=== PATIENT | male | born 1975 | race Hispanic/Latino ===

== ENCOUNTER 2025-06-14 14:20 | Emergency (ER) | payer BC ==
[~2025-06-14] VITALS: Ht 160 cm; Wt 81.6 kg
[2025-06-14 15:26] LABS: IMMATURE GRANULOCYTE ABSOLUTE 0.34 K/uL (0-1); NUCLEATED RED BLOOD CELLS 0.0 % (0.0-0.19); PLATELET COUNT (AUTO) 225 K/uL (130-400); RED BLOOD CELL COUNT(AUTO) 5.35 MIL/uL (4.50-6.20); RED CELL DISTRIBUTION WIDTH 13.1 % (11.0-15.5); WHITE BLOOD COUNT (AUTO) 16.0 K/uL (4.8-10.8)
[2025-06-14 15:38] LABS: CREATININE 0.8 mg/dL (0.5-1.3); GLOMERULAR FILTR. RATE CALC 109.0 mL/min (>90); GLUCOSE,RANDOM 104.0 mg/dL (70-105); SODIUM SERUM 137.0 mmol/L (136-145); UREA NITROGEN, BLOOD 10.0 mg/dL (7-18)
[2025-06-14] MEDS ORDERED: IOHEXOL-350 50ML VIAL IV ONE (15:44)
[2025-06-14] MEDS: 0.9%NACL 1000ML 1,000 ML IV STA (15:49)
--- NOTE | 2025-06-14 16:34 | ERN ---
ED Note History of Present Illness Stated Complaint: INFLAMED TONSILS Chief Complaint: Sore Throat Time Seen by MD: 14:24 Time Seen by Midlevel: 14:26 Dictation: 50-year-old male with no medical history coming in with complaints of throat pain difficulty swallowing. Patient states it has been going on for two days. Patient states he has not episode of the cysts in the past. No drooling, no tripoding, no tachypnea or hypoxia noted initial assessment. Allergies: Coded Allergies: No Known Allergies (Unverified Allergy, Unknown, 06/14/25) Home Meds Active Scripts Amoxicillin/Potassium Clav (Amox Tr-K Clv 875-125 mg Tab) 875 Mg-125 Mg Tablet, 1 EACH PO BID for 10 Days, #10 TAB 0 Refills Prov:JAKOB BENITEZ CNP 06/14/25 Past Medical History Past Medical History: HIV Surgical History: None Review of System Dictation Constitutional: Negative for fever,chills, and weight loss Eyes: Negative for injury, pain,redness, and discharge ENT: throat pain Cardiovascular: Negative for chest pain, palpitations, and edema Respiratory: Negative for shortness of breath, cough, and wheezing, Abdomen/GI: Negative for abdominal pain, nausea, vomiting, diarrhea, and constipation Back: Negative for injury and pain : Negative for injury, bleeding and discharge MS/Extremity: Negative for injury and deformity Skin: Negative for rash, and discoloration Neuro: Negative for headache, weakness, numbness, tingling, and seizure Psych: Negative for suicide ideation, homicidal ideation, and hallucinations Review of Systems: was completed Initial Vital Sign VS Vital Signs Date Time Temp Pulse Resp B/P (MAP) Pulse Ox O2 Delivery O2 Flow Rate FiO2 06/14/25 14:21 98.2 101 18 144/84 98 Room Air 0 Physical Exam Dictation General: awake, alert, NAD Head/Face: Normocephalic, atraumatic Eyes: PERRL, EOMI, vision at baseline ENT: erythema noted, swollen tonsils, is midline however there is right effacement noted Neck: Trachea midline, supple, no nuchal rigidity Cardiovascular: RRR, normal S1/S2, No MRGs, no JVD Respiratory: CTAB, no respiratory distress, No rales or wheezes Abdomen: Soft, non-tender, non-distended, normal bowel sounds, no guarding or rebound. Skin: Warm, dry, normal turgor, no rash MS/Extremity: Pulses equal, no cyanosis, neurovascular intact, FROM Neuro: COAx4, GCS 15, strength 5/5, CN 2-12 intact, normal cerebellar exam, normal gait, Psych: Normal behavior, mood, and affect normal Results (Laboratory/Radiology) Laboratory/Radiology Laboratory Tests Test 06/14/25 15:12 06/14/25 16:18 White Blood Count 16.0 K/uL (4.8-10.8) H Red Blood Count 5.35 MIL/uL (4.50-6.20) Hemoglobin 16.8 g/dL (14.0-18.0) Hematocrit 48.8 % (42-54) Mean Corpuscular Volume 91.2 fL (79-99) Mean Corpuscular Hemoglobin 31.4 pg (27.0-33.0) Mean Corpuscular Hemoglobin Concent 34.4 g/dL (32.0-36.0) Red Cell Distribution Width 13.1 % (11.0-15.5) Platelet Count 225 K/uL (130-400) Mean Platelet Volume 9.5 fL (7.5-10.5) Immature Granulocyte % (Auto) 2.1 % (0-1) H Neutrophils (%) (Auto) 74.0 % (40.0-77.0) Lymphocytes (%) (Auto) 10.2 % (21.0-51.0) L Monocytes (%) (Auto) 10.9 % (3.0-13.0) Eosinophils (%) (Auto) 2.3 % (0.0-8.0) Basophils (%) (Auto) 0.5 % (0.0-5.0) Neutrophils # (Auto) 11.9 K/uL (1.8-7.7) H Lymphocytes # (Auto) 1.6 K/uL (1.0-4.8) Monocytes # (Auto) 1.7 K/uL (0.1-1.0) H Eosinophils # (Auto) 0.37 K/uL (0.00-0.70) Basophils # (Auto) 0.08 K/uL (0.00-0.20) Absolute Immature Granulocyte (auto 0.34 K/uL (0-1) Nucleated Red Blood Cells 0.0 % (0.0-0.19) Sodium Level 137 mmol/L (136-145) Potassium Level 4.6 mmol/L (3.5-5.1) Chloride Level 103 mmol/L (101-111) Carbon Dioxide Level 28 mmol/L (21-32) Blood Urea Nitrogen 10 mg/dL (7-18) Creatinine 0.8 mg/dL (0.5-1.3) Glomerular Filtration Rate Calc 109 mL/min (>90) Random Glucose 104 mg/dL (70-105) Lactic Acid Level 1.7 mmol/L (0.8-2.5) Total Calcium 9.2 mg/dL (8.5-10.1) Influenza Type A Antigen Negative For Type A Influenza Type B Antigen Negative For Type B SARS-CoV-2, RNA, NAAT NEGATIVE SARS CoV-2 Group A Streptococcus Rapid positive (NEGATIVE) *A Labs Reviewed?: Yes CT Scan Comment: [address] [address] IMAGING REPORT Addendum PATIENT: JULIA BUI MR#: [id number] : 1975 SEX: M AGE: 50 LOCATION: [facility] ORDER [id number] STATUS: [facility] REPORT#: [id number] SERVICE [id number] REASON: R/O ABSCESS ORDERING PHYSICIAN: JAKOB BENITEZ CNP PROCEDURE: NKSOFTI W - CT NECK SOFT TISS W/CONTRAST ADDENDUM REPORT ADDENDUM: Results were shared by telephone at 06:03 PM EST on 06-14-[address]USMAN JACKSON /[place] EXAM: CT SCAN OF THE NECK WITH CONTRAST CLINICAL HISTORY: Evaluate for abscess. TECHNIQUE: Multislice contrast-enhanced CT scan of the neck was performed from the skull base to the thoracic inlet with axial images and multiplanar reformations. RADIATION DOSE: CTDIvol 10.70 mGy; DLP 323.50 mGycm. CONTRAST: Standard dose of intravenous contrast administered. COMPARISON: None provided. FINDINGS: OROPHARYNX / TONSILS: The right palatine tonsil is enlarged and bulky. Within its posterior aspect there is a peripherally enhancing, centrally hypodense collection measuring approximately 23 x 20 mm, with a thick, mildly irregular enhancing rim, compatible with a tonsillar/peritonsillar abscess. A few tiny subcentimeter tonsilloliths are present within the bilateral palatine tonsils. No definite extension into the parapharyngeal or retropharyngeal spaces is described. NASOPHARYNX AND MUCOSAL SPACE: Nasopharyngeal mucosa and airway are maintained without focal mass or asymmetric soft tissue thickening. LARYNX AND HYPOPHARYNX: Laryngeal cartilages and glottic/supraglottic structures are unremarkable. Airway is patent. PARAPHARYNGEAL AND RETROPHARYNGEAL SPACES: No discrete fluid collection, gas, or phlegmonous change is described in the parapharyngeal or retropharyngeal spaces. SALIVARY GLANDS: Parotid and submandibular glands appear normal in size and attenuation without focal mass or sialolithiasis. LYMPH NODES: No pathologically enlarged cervical lymph nodes are described. THYROID: Thyroid gland appears normal in size and attenuation without dominant nodule or mass effect. VASCULATURE: Major cervical vessels are in expected position and caliber without reported thrombosis or aneurysmal dilatation. OSSEOUS STRUCTURES: Visualized cervical spine and facial bones demonstrate no acute osseous abnormality or destructive lesion. LUNG APICES / SUPERIOR MEDIASTINUM: Visualized lung apices and superior mediastinum are unremarkable on this limited [id number]. IMPRESSION: * Bulky right palatine tonsil containing a 23 x 20 mm peripherally enhancing, centrally hypodense collection, most consistent with a right tonsillar/peritonsillar abscess. Recommend prompt ENT consultation for clinical correlation and management, including consideration of incision and drainage and intravenous antibiotics. * Few tiny bilateral palatine tonsilloliths, a benign chronic finding without specific imaging follow-up requirement. * No CT evidence of retropharyngeal fluid collection, deep neck space extension, or other neck mass on this study. /[place] DICTATED BY: RENATO LYON MD DATE: 06/14/251804 ELECTRONICALLY SIGNED BY: DATE: EXAM: CT SCAN OF THE NECK WITH CONTRAST CLINICAL HISTORY: Evaluate for abscess. TECHNIQUE: Multislice contrast-enhanced CT scan of the neck was performed from the skull base to the thoracic inlet with axial images and multiplanar reformations. RADIATION DOSE: CTDIvol 10.70 mGy; DLP 323.50 mGycm. CONTRAST: Standard dose of intravenous contrast administered. COMPARISON: None provided. FINDINGS: OROPHARYNX / TONSILS: The right palatine tonsil is enlarged and bulky. Within its posterior aspect there is a peripherally enhancing, centrally hypodense collection measuring approximately 23 x 20 mm, with a thick, mildly irregular enhancing rim, compatible with a tonsillar/peritonsillar abscess. A few tiny subcentimeter tonsilloliths are present within the bilateral palatine tonsils. No definite extension into the parapharyngeal or retropharyngeal spaces is described. NASOPHARYNX AND MUCOSAL SPACE: Nasopharyngeal mucosa and airway are maintained without focal mass or asymmetric soft tissue thickening. LARYNX AND HYPOPHARYNX: Laryngeal cartilages and glottic/supraglottic structures are unremarkable. Airway is patent. PARAPHARYNGEAL AND RETROPHARYNGEAL SPACES: No discrete fluid collection, gas, or phlegmonous change is described in the parapharyngeal or retropharyngeal spaces. SALIVARY GLANDS: Parotid and submandibular glands appear normal in size and attenuation without focal mass or sialolithiasis. LYMPH NODES: No pathologically enlarged cervical lymph nodes are described. THYROID: Thyroid gland appears normal in size and attenuation without dominant nodule or mass effect. VASCULATURE: Major cervical vessels are in expected position and caliber without reported thrombosis or aneurysmal dilatation. OSSEOUS STRUCTURES: Visualized cervical spine and facial bones demonstrate no acute osseous abnormality or destructive lesion. LUNG APICES / SUPERIOR MEDIASTINUM: Visualized lung apices and superior mediastinum are unremarkable on this limited [id number]. IMPRESSION: * Bulky right palatine tonsil containing a 23 x 20 mm peripherally enhancing, centrally hypodense collection, most consistent with a right tonsillar/peritonsillar abscess. Recommend prompt ENT consultation for clinical correlation and management, including consideration of incision and drainage and intravenous antibiotics. * Few tiny bilateral palatine tonsilloliths, a benign chronic finding without specific imaging follow-up requirement. * No CT evidence of retropharyngeal fluid collection, deep neck space extension, or other neck mass on this study. /[place] DICTATED BY: RENATO LYON MD DATE: 06/14/251755 ELECTRONICALLY SIGNED BY: RENATO LYON MD DATE: 06/14/251755 ED Course ED Course Orders Procedure Category Date Status Time Cbc With Differential LAB 06/14/25 Complete 15:01 Basic Metabolic Panel LAB 06/14/25 Complete 15:01 Lactic Acid LAB 06/14/25 Complete 15:01 Blood Cult [place] 06/14/25 In Process 15:01 Influenza Type A & B, LAB 06/14/25 Complete Rapid 15:01 Covid Rna Naat LAB 06/14/25 Complete 15:01 Rapid (Group A Strep) LAB 06/14/25 Complete 15:01 Ct Neck Soft Tiss CT 06/14/25 Resulted W/Contrast 15:01 0.9%Nacl 1000ml (Ns PHA 06/14/25 Complete 1000ml) 15:01 Dexamethasone 4mg/Ml PHA 06/14/25 Complete 1ml Vial (Dexametha 15:30 Ketorolac PHA 06/14/25 Complete Tromethamine 15mg/Ml 15:30 Iohexol (Omnipaque) PHA 06/14/25 Complete 15:44 Amp/Sulbac 3gm+Ns PHA 06/14/25 In Process 100ml (Unasyn 3gm+Ns 1 17:26 [place] [facility] [place] Transmitted 17:28 Current Medications Medications (Trade) Dose Ordered Sig/Elodia Route PRN Reason Start Time Stop Time Status Last Admin Dose Admin Ampicillin Sodium/ Sulbactam Sodium (Unasyn 3gm+NS 100ml) 3 gm ONCE IV 06/14/25 17:26 06/14/25 21:30 06/14/25 17:49 Dexamethasone Sodium Phosphate (dexaMETHasone 4MG/ML 1ML VIAL) 6 mg ONCE ONCE IVP 06/14/25 15:30 06/14/25 15:31 DC 06/14/25 15:49 Iohexol (Omnipaque) 50 ml STK-MED ONCE IV 06/14/25 15:44 06/14/25 15:44 DC Ketorolac Tromethamine (toRADol) 15 mg ONCE ONCE IV 06/14/25 15:30 06/14/25 15:31 DC 06/14/25 15:49 Sodium Chloride 1,000 ml @ 1,000 mls/hr Q1H STAT IV 06/14/25 15:01 06/14/25 16:00 DC 06/14/25 15:49 Vital Signs Date Time Temp Pulse Resp B/P (MAP) Pulse Ox O2 Delivery O2 Flow Rate FiO2 06/14/25 14:21 98.2 101 18 144/84 98 Room Air 0 Medical Decision Making MDM MDM: 50-year-old male with no past medical history presents with a two day history of right-sided sore throat and posterior throat pain and mild difficulty swallowing. Patient reports it is worse when swelling is states it hurts to talk and . Notably has muffled/hot potato voice on exam. Patient denies drooling, inability to tolerate secretions or shortness a breath. Patient remains able to tolerate oral fluids. [place] [address], no anemia, no thrombocytopenia. Chemistry unremarkable. CT scan does show a right peritonsillar abscess measuring 23 x 20 mm. A my assessment findings are consistent with peritonsillar abscess. Due to muffled voice, leukocytosis and confirmed abscess, ENT evaluation and possible procedure interventions were recommended. Discussed risk and failure to transfer including airway compromise, parapharyngeal space bread, sepsis, worsening edema, inability to swallow secretions, . Cough since the patient is awake alert and oriented x4 capable of making decisions and demonstrates capacity for decision making. He refuses the transfer due to needing to drive home to [facility] for a new job. Patient did sign the AMA f orm. However in the ER patient did receive Unasyn 3 g x 1, dexamethasone, ketorolac and a L of fluids. Although patient is leaving against medical advice treatment was provided to reduce morbidity. Augmentin will be sent to pharmacy and educated patient on when to return back to the emergency room including drooling, inability to swallow saliva, worsening muffled voice, fever, vomiting, or breathing difficulty. Patient verbalized understanding, answered all questions. Differential diagnosis: Throat, viral pharyngitis, peritonsillar abscess, Rationale: Tests considered and ordered secondary to shared decision making include: Previous outside records reviewed: Old ER visits. Risk of complication and/or morbidity or mortality of patient management: None Medications-Per medication reconciliation Need for hospitalization: Patient does not meet criteria for hospitalization. Need for emergency major/minor surgery: No There are no social concerns with this patient. Prescription drug management Prescriptions will include symptomatic care Patient's prior external medical records from other ER visits were reviewed by me as indicated. Prior testing and results from previous visits were reviewed. Prior tests were taken into account with medical decision making and resource utilization, independent historian/historians were used to obtain complete medical history. I independently interpreted the test that were performed, results were reviewed by me and considered findings on radiology if ordered. Medical management and examination interpretation discussions were had by me with other qualified healthcare professionals as indicated for the patient's care. DX & DISP Disposition: AMA Departure Impression: Primary Impression: Peritonsillar abscess Condition: Stable Scripts Amoxicillin/Potassium Clav (Amox Tr-K Clv 875-125 mg Tab) 875 Mg-125 Mg Tablet 1 EACH PO BID for 10 Days, #10 TAB 0 Refills Prov: JAKOB BENITEZ CNP 06/14/25 Additional Instructions: Please return back to the emergency room if you develop drooling, inability to swallow, saliva, worsening muffled voice. Referrals: SELF,REFERRAL (PCP) Time of Disposition: 17:57 I have reviewed the case, and I agree with, Diagnosis and Plan JAKOB BENITEZ CNP Jun 14, 2025 16:34
[2025-06-14 16:40] LABS: SARS-CoV-2, RNA, NAAT NEGATIVE SARS CoV-2 (NEGATIVE)
[2025-06-14 16:45] LABS: INFLUENZA TYPE A Negative For Type A (NEGATIVE); INFLUENZA TYPE B Negative For Type B (NEGATIVE); RAPID GROUP A STREP positive (NEGATIVE)
--- NOTE | 2025-06-14 16:58 | HMCIMG ---
EXAM: CT SCAN OF THE NECK WITH CONTRAST CLINICAL HISTORY: Evaluate for abscess. TECHNIQUE: Multislice contrast-enhanced CT scan of the neck was performed from the skull base to the thoracic inlet with axial images and multiplanar reformations. RADIATION DOSE: CTDIvol 10.70 mGy; DLP 323.50 mGycm. CONTRAST: Standard dose of intravenous contrast administered. COMPARISON: None provided. FINDINGS: OROPHARYNX / TONSILS: The right palatine tonsil is enlarged and bulky. Within its posterior aspect there is a peripherally enhancing, centrally hypodense collection measuring approximately 23 x 20 mm, with a thick, mildly irregular enhancing rim, compatible with a tonsillar/peritonsillar abscess. A few tiny subcentimeter tonsilloliths are present within the bilateral palatine tonsils. No definite extension into the parapharyngeal or retropharyngeal spaces is described. NASOPHARYNX AND MUCOSAL SPACE: Nasopharyngeal mucosa and airway are maintained without focal mass or asymmetric soft tissue thickening. LARYNX AND HYPOPHARYNX: Laryngeal cartilages and glottic/supraglottic structures are unremarkable. Airway is patent. PARAPHARYNGEAL AND RETROPHARYNGEAL SPACES: No discrete fluid collection, gas, or phlegmonous change is described in the parapharyngeal or retropharyngeal spaces. SALIVARY GLANDS: Parotid and submandibular glands appear normal in size and attenuation without focal mass or sialolithiasis. LYMPH NODES: No pathologically enlarged cervical lymph nodes are described. THYROID: Thyroid gland appears normal in size and attenuation without dominant nodule or mass effect. VASCULATURE: Major cervical vessels are in expected position and caliber without reported thrombosis or aneurysmal dilatation. OSSEOUS STRUCTURES: Visualized cervical spine and facial bones demonstrate no acute osseous abnormality or destructive lesion. LUNG APICES / SUPERIOR MEDIASTINUM: Visualized lung apices and superior mediastinum are unremarkable on this limited [id number]. IMPRESSION: * Bulky right palatine tonsil containing a 23 x 20 mm peripherally enhancing, centrally hypodense collection, most consistent with a right tonsillar/peritonsillar abscess. Recommend prompt ENT consultation for clinical correlation and management, including consideration of incision and drainage and intravenous antibiotics. * Few tiny bilateral palatine tonsilloliths, a benign chronic finding without specific imaging follow-up requirement. * No CT evidence of retropharyngeal fluid collection, deep neck space extension, or other neck mass on this study. /[place]
--- NOTE | 2025-06-14 17:45 | NUR ---
PT VERBALIZED NOT WANTING TO GET ADMITTED OR TRANSFERRED. 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 HE STATES THAT HE WILL CHECK IN AT HIS HOSPITAL THE DAY HE ARRIVES. ED PROVIDER JAKOB ADAMES NP MADE AWARE.
[2025-06-14] MEDS: AMP/SULBAC 3GM+NS 100ML IV SCH (17:49)
[2025-06-14] MEDS ORDERED: AMOX1TAB16 PO (17:58)
[2025-06-14 18:09] VITALS: BP 148/71; PULSE 90; RESP 20; TEMP 98.9; O2SAT 99
== END 2025-06-14 18:16 | disposition left against medical advice (07) ==
LOC: EDH 14:20
DX: J36 Peritonsillar abscess (principal); Z20.822 Contact with and (suspected) exposure to COVID-19
CPT/HCPCS: 99284; 96374; 70491; 96375; 87635; 96361; 80048; 85025; 87040 ×2; 87880; 87804 ×2; 83605; 36415; J1100; J1885; J7030; Q9967; J0295